=== PATIENT | female | born 2000 | race Hispanic/Latino ===

== ENCOUNTER 2019-04-05 21:10 | Emergency (ER) | payer OTHER ==
[2019-04-05] MEDS ORDERED: LIDOCAINE VISCOUS 2% SOLN 15 ML UDC ONE (22:02)
[2019-04-05] MEDS ORDERED: MAGNE/ALUM HYDROXD 30 ML UCUP ONE (22:02)
--- NOTE | 2019-04-05 22:34 | EDPHYS ---
Physician Documentation [facility] Name: Peace Spencer Age: 18 yrs Sex: Female : 2000 Arrival Date: 04/05/2019 Time: 21:19 Bed 5 Private MD: ED Physician Kenroy Chester HPI: 04/05 21:48 This 18 yrs old Female presents to ER via Ambulatory with complaints of jr8 Epgastric pain and burning. 21:48 The patient presents with abdominal pain in the epigastric area. Onset: The jr8 symptoms/episode began/occurred acutely, yesterday. The symptoms do not radiate. Associated signs and symptoms: none. The symptoms are described as burning. Modifying factors: The symptoms are alleviated by nothing, the symptoms are aggravated by food. Severity of pain: At its worst the pain was moderate in the emergency department the pain is unchanged. The patient has experienced similar episodes in the past, a few times. The patient has not recently seen a physician. Patient stated that she has history of GERD. Currently 9 weeks . Has been off of her Nexium for sometime. Having reflux and burning now . [employer]: 21:23 LMP 01/26/2019, Verified, EDC 11/02/2019, Gestational age from LMP: 10 weeks 0 ak1 days Historical: - Allergies: 21:25 No Known Allergies; ak1 - Home Meds: 21:25 Nexium Oral [Active]; ak1 - PMHx: 21:25 GERD; ak1 - PSHx: 21:25 None; ak1 - Immunization history:: Adult Immunizations up to date. - Social history:: Smoking status: Patient/guardian denies using tobacco. - Ebola Screening: : No symptoms or risks identified at this time. ROS: 21:48 Eyes: Negative for injury, pain, redness, and discharge, ENT: Negative for injury, jr8 pain, and discharge, Neck: Negative for injury, pain, and swelling, Cardiovascular: Negative for chest pain, palpitations, and edema, Respiratory: Negative for shortness of breath, cough, wheezing, and pleuritic chest pain, Back: Negative for injury and pain, MS/Extremity: Negative for injury and deformity, Skin: Negative for injury, rash, and discoloration, Neuro: Negative for headache, weakness, numbness, tingling, and seizure. 21:48 Abdomen/GI: Positive for abdominal pain, Negative for nausea, vomiting, and diarrhea, abdominal distension, anorexia, dysphagia, hematemesis, black/tarry stool, rectal pain, rectal bleeding, bowel incontinence, flatulence. Exam: 21:48 Eyes: Pupils equal round and reactive to light, extra-ocular motions intact. Lids and jr8 lashes normal. Conjunctiva and sclera are non-icteric and not injected. Cornea within normal limits. Periorbital areas with no swelling, redness, or edema. ENT: Nares patent. No nasal discharge, no septal abnormalities noted. Tympanic membranes are normal and external auditory canals are clear. Oropharynx with no redness, swelling, or masses, exudates, or evidence of obstruction, uvula midline. Mucous membranes moist. Neck: Trachea midline, no thyromegaly or masses palpated, and no cervical lymphadenopathy. Supple, full range of motion without nuchal rigidity, or vertebral point tenderness. No Meningismus. Cardiovascular: Regular rate and rhythm with a normal S1 and S2. No gallops, murmurs, or rubs. Normal PMI, no JVD. No pulse deficits. Respiratory: Lungs have equal breath sounds bilaterally, clear to auscultation and percussion. No rales, rhonchi or wheezes noted. No increased work of breathing, no retractions or nasal flaring. Back: No spinal tenderness. No costovertebral tenderness. Full range of motion. Skin: Warm, dry with normal turgor. Normal color with no rashes, no lesions, and no evidence of cellulitis. MS/ Extremity: Pulses equal, no cyanosis. Neurovascular intact. Full, normal range of motion. Neuro: Awake and alert, GCS 15, oriented to person, place, time, and situation. Cranial nerves II-XII grossly intact. Motor strength 5/5 in all extremities. Sensory grossly intact. Cerebellar exam normal. Normal gait. 21:48 Abdomen/GI: Inspection: gravid appearance, is noted, Bowel sounds: active, all quadrants, Palpation: soft, in all quadrants, nontender, in the umbilical area, suprapubic area, right upper quadrant, left upper quadrant, right lower quadrant and left lower quadrant, mild abdominal tenderness, in the epigastric area, mass, is not appreciated, rebound tenderness, is not appreciated, voluntary guarding, is not appreciated, involuntary guarding, is not appreciated, no appreciated organomegaly, Indicators: McBurney's point is not tender, Whiteside's sign is negative, Rovsing's sign is negative, Liver: tenderness, is not appreciated. Vital Signs: 21:23 BP 125 / 84; Pulse 99; Resp 18; Temp 97.4; Pulse Ox 99% on R/A; Weight 61.23 kg (R); ak1 Height 5 ft. 2 in. (157.48 cm) (R); Pain 4/10; 22:30 BP 101 / 59; Pulse 93; Resp 17 S; Temp 97.6(O); Pulse Ox 99% on R/A; cc3 21:23 Body Mass Index 24.69 (61.23 kg, 157.48 cm) ak1 MDM: 21:45 Patient medically screened. jr8 22:33 Data reviewed: vital signs, nurses notes, and as a result, I will discharge patient. jr8 Data interpreted: Pulse oximetry: on room air is 99 %. Interpretation: normal. Counseling: I had a detailed discussion with the patient and/or guardian regarding: the historical points, exam findings, and any diagnostic results supporting the discharge/admit diagnosis, the need for outpatient follow up, an OB/Gyne specialist, to return to the emergency department if symptoms worsen or persist or if there are any questions or concerns that arise at home. Response to treatment: the patient's symptoms have resolved after treatment. Administered Medications: 21:50 Drug: GI Cocktail without - (Maalox Suspension 30 ml, Lidocaine Liquid 2 % 15 cc3 ml) Route: PO; 22:30 Follow up: Response: No adverse reaction; Pain is decreased cc3 Disposition: 04/06 06:41 Co-signature as Attending Physician, Kenroy hCester MD I agree with the assessment and brittani plan of care. Disposition: 04/05/19 22:33 Discharged to Home. Impression: Gastritis, unspecified. - Condition is Stable. - Discharge Instructions: Gastritis, Adult. - Prescriptions for Nexium 20 mg Oral Capsule - take 1 capsule by ORAL route once daily; 20 capsule. promethazine 25 mg Oral Tablet - take 1 tablet by ORAL route every 6 hours As needed; 20 tablet. - Medication Reconciliation Form, Thank You Letter, Antibiotic Education, Prescription Opioid Use form. - Follow up: Private Physician; When: As needed; Reason: Recheck today's complaints, Continuance of care, Re-evaluation by your physician. - Problem is new. - Symptoms have improved. Signatures: Kenroy Chester MD MD cha Roszak, Josh, PA PA jr8 Alexandra Angel, RN RN ak1 María Moreland cc3 Corrections: (The following items were deleted from the chart) 04/05 22:43 22:33 04/05/2019 22:33 Discharged to Home. Impression: Gastritis, unspecified. cc3 Condition is Stable. Forms are Medication Reconciliation Form, Thank You Letter, Antibiotic Education, Prescription Opioid Use. Follow up: Private Physician; When: As needed; Reason: Recheck today's complaints, Continuance of care, Re-evaluation by your physician. Problem is new. Symptoms have improved. jr8
--- NOTE | 2019-04-05 22:34 | ER ---
Nurse's Notes [facility] Name: Peace Spencer Age: 18 yrs Sex: Female : 2000 Arrival Date: 04/05/2019 Time: 21:19 Bed 5 Private MD: Diagnosis: Gastritis, unspecified Presentation: 04/05 21:23 Presenting complaint: Patient states: burning epigastric pain intermittent since ak1 yesterday. pt c/o nausea, denies vomiting. pt to see [facility] in the [place] on Thursday. Transition of care: patient was not received from another setting of care. Onset of symptoms is unknown. Risk Assessment: Do you want to hurt yourself or someone else? Patient reports no desire to harm self or others. Initial Sepsis Screen: Does the patient meet any 2 criteria? No. Patient's initial sepsis screen is negative. Does the patient have a suspected source of infection? No. Patient's initial sepsis screen is negative. Care prior to arrival: None. 21:23 Method Of Arrival: Ambulatory ak1 21:23 Acuity: DO 3 ak1 Triage Assessment: 21:25 General: Appears in no apparent distress. Behavior is calm, cooperative. ak1 [facility]: 21:23 LMP 01/26/2019, Verified, EDC 11/02/2019, Gestational age from LMP: 10 weeks 0 ak1 days Historical: - Allergies: 21:25 No Known Allergies; ak1 - Home Meds: 21:25 Nexium Oral [Active]; ak1 - PMHx: 21:25 GERD; ak1 - PSHx: 21:25 None; ak1 - Immunization history:: Adult Immunizations up to date. - Social history:: Smoking status: Patient/guardian denies using tobacco. - Ebola Screening: : No symptoms or risks identified at this time. Screenin:30 Abuse screen: Denies threats or abuse. Denies injuries from another. Nutritional cc3 screening: No deficits noted. Tuberculosis screening: No symptoms or risk factors identified. Fall Risk Ambulatory Aid- None/Bed Rest/Nurse Assist (0 pts). Gait- Normal/Bed Rest/Wheelchair (0 pts) Mental Status- Oriented to own ability (0 pts). Assessment: 21:30 General: Appears in no apparent distress. comfortable, Behavior is calm, cooperative, cc3 appropriate for age. Pain: Complains of pain in epigastric Pain does not radiate. Neuro: Level of Consciousness is awake, alert, obeys commands, Oriented to person, place, time, situation, Appropriate for age. Cardiovascular: Patient's skin is warm and dry. Respiratory: Airway is patent Respiratory effort is even, unlabored, Respiratory pattern is regular, symmetrical. GI: Abdomen is round non-distended, Bowel sounds present X 4 quads. Abd is soft and non tender X 4 quads. : No signs and/or symptoms were reported regarding the genitourinary system. EENT: No signs and/or symptoms were reported regarding the EENT system. Derm: No signs and/or symptoms reported regarding the dermatologic system. Musculoskeletal: Circulation, motion, and sensation intact. Range of motion: intact in all extremities. 22:40 Reassessment: Patient appears in no apparent distress at this time. Patient and/or cc3 family updated on plan of care and expected duration. Pain level reassessed. Patient is alert, oriented x 3, equal unlabored respirations, skin warm/dry/pink. CONRADO Mejia discharged the patient home with prescription given. No IV cannula in situ. Patient left ER vitally stable and ambulatory. Patient denies pain at this time. Patient states feeling better. Patient states symptoms have improved. Vital Signs: 21:23 BP 125 / 84; Pulse 99; Resp 18; Temp 97.4; Pulse Ox 99% on R/A; Weight 61.23 kg (R); ak1 Height 5 ft. 2 in. (157.48 cm) (R); Pain 4/10; 22:30 BP 101 / 59; Pulse 93; Resp 17 S; Temp 97.6(O); Pulse Ox 99% on R/A; cc3 21:23 Body Mass Index 24.69 (61.23 kg, 157.48 cm) ak1 ED Course: 21:19 Patient arrived in ED. am2 21:24 Triage completed. ak1 21:25 Arm band placed on Patient placed in an exam room, on a stretcher, on pulse oximetry, ak1 Patient notified of wait time. 21:25 Patient has correct armband on for positive identification. Bed in low position. Call ak1 light in reach. Side rails up X 1. Pulse ox on. NIBP on. 21:27 María Moreland is Primary Nurse. cc3 21:39 Nitesh Mejia PA is PHCP. jr8 21:39 Kenroy Chester MD is Attending Physician. jr8 22:40 No provider procedures requiring assistance completed. Patient did not have IV access cc3 during this emergency room visit. Administered Medications: 21:50 Drug: GI Cocktail without - (Maalox Suspension 30 ml, Lidocaine Liquid 2 % 15 cc3 ml) Route: PO; 22:30 Follow up: Response: No adverse reaction; Pain is decreased cc3 Outcome: 22:33 Discharge ordered by . jr8 22:40 Discharged to home ambulatory. cc3 22:40 Condition: stable 22:40 Discharge instructions given to patient, Instructed on discharge instructions, follow up and referral plans. medication usage, Demonstrated understanding of instructions, follow-up care, medications, Prescriptions given X 2. 22:43 Patient left the ED. cc3 Signatures: Nitesh Mejia PA PA jr8 Alexandra Angel RN RN ak1 Sophia Mosquera 2 María Moreland cc3
== END 2019-04-05 22:43 | disposition home or self-care (01) ==
LOC: ER 21:10
DX: K29.70 Gastritis, unspecified, without bleeding (principal); K21.9 Gastro-esophageal reflux disease without esophagitis
CPT/HCPCS: 99283